=== PATIENT | male | born 1980 | race Caucasian/White ===

== ENCOUNTER 2016-04-30 14:33 | Emergency (ER) | payer MEDICAID ==
[2016-04-30 14:44] VITALS: BP 145/94; PULSE 78; RESP 18; TEMP 98; O2SAT 98
--- NOTE | 2016-04-30 15:17 | EDPHY ---
H & P Chief Complaint Nursing Narrative: here for MARIE for 2 wks - hx of CHI and freq MARIE HPI/ROS: HPI CHIEF COMPLAINT: Chronic headache HISTORY OF PRESENT ILLNESS: This patient 36-year-old male he presents to the urgent care by private vehicle stating that he has had a chronic headache for 2 weeks. Patient tells me that he has had this headache chronically for years since age 18. He tells me that he has developed headaches from repeated trauma to his head while playing hockey. When I asked him what is expectations here in the Urgent Care for acute treatment of his headache is requesting Percocet. I explained to him that I cannot given Percocet is it is a controlled substance and is not a good medication for acute headache management. I offered him a migraine or headache cocktail however patient is decline. I offered him other options however patient started to become irate and upset at me requesting Percocet. I explained again that I am unable to provide him Percocet for acute headache management he does have a primary care doctor he also is followed by Neurology. I did recommend that he follows up with his neurologist Dr. Moncada as well as his primary care doctor. At this time here in the Urgent Care he appears well nontoxic is a nonfocal neurological exam his expectation was to get Percocet and leave the urgent care. I explained unfortunately cannot do this as it is controlled substance I do not dispense Percocet for acute headache management. He declined IV, declined IV pain medicine, declined IV headache cocktail/migraine cocktail. Given that patient expectation is to have be given Percocet here he has declined all other treatments and given that I explained that I will not give him Percocet he has decided to leave the urgent care. Past Medical History: Chronic headaches Past Surgical History: denies significant surgical history Social History: Denies use of drugs alcohol tobacco Family History: noncontributory ROS REVIEW OF SYSTEMS: A comprehensive 10 point review of systems is otherwise negative aside from elements mentioned in the history of present illness. Exam Constitutional appears well nontoxic, triage nursing summary reviewed, vital signs reviewed, awake/alert. Eyes normal conjunctivae and sclera, EOMI, PERRLA. HENT normal inspection, atraumatic, moist mucus membranes, no epistaxis, neck supple/ no meningismus, no raccoon eyes. Respiratory clear to auscultation bilaterally, normal breath sounds, no respiratory distress, no wheezing. Cardiovascular rate normal, regular rhythm, no murmur, no edema, distal pulses normal. Gastrointestinal soft, non-tender, no rebound, no guarding, normal bowel sounds, no distension, no pulsatile mass. Genitourinary no CVA tenderness. Musculoskeletal no midline vertebral tenderness, full range of motion, no calf swelling, no tenderness of extremities, no meningismus, good pulses, neurovascularly intact. Skin pink, warm, & dry, no rash, skin atraumatic. Neurologic awake, alert and oriented x 3, AAOx3, moves all 4 extremities equally, motor intact, sensory intact, CN II-XII intact, normal cerebellar, normal vision, normal speech. Psychiatric normal mood/affect. Heme/Lymph/Immune no lymphadenopathy. Differential Diagnosis: Includes but is not limited to in a particular order, chronic headaches, chronic migraine headaches, cluster headaches, tension headache, doubt intracranial bleed, doubt brain tumor, narcotic-seeking behavior , opiate dependency Medical Decision Making: Patient has decided that decline all treatment here in the Urgent Care and would like to be discharged. I did recommend that if he has worsening headache to return to the ER or Urgent Care I also highly recommend that he follows up with his primary care doctor and neurologist. At this time he appears well nontoxic no acute distress, normal neurological exam. I politely declined to give him Percocet. Source: Patient - Personal History Current Tetanus Diphtheria and Acellular Pertussis (TDAP): Yes Tetanus Vaccine Date: 2006 - Medical/Surgical History Hx Asthma: No Hx Chronic Respiratory Disease: No Hx Diabetes: No Hx Cardiac Disease: No Hx Renal Disease: No Hx Cirrhosis: No Hx Alcoholism: No Hx HIV/AIDS: No Hx Splenectomy or Spleen Trauma: No Other PMH: MIGRAINES. Left shoulder surgery rotator cuff - Social History Smoking Status: Never smoked Constitutional: Initial Vital Signs Temperature (C) 36.6 C 04/30/16 14:41 Heart Rate 78 04/30/16 14:41 Respiratory Rate 18 04/30/16 14:41 Blood Pressure 145/94 H 04/30/16 14:41 O2 Sat (%) 98 04/30/16 14:41 O2 Delivery Mode Room Air Allergies/Adverse Reactions: prednisone Allergy (Verified 07/16/15 11:16) Home Medications: Medication Instructions Recorded Verapamil 09/26/14 Zoloft 100mg (RX) 09/26/14 traMADOL 06/07/15 Departure - Departure Disposition: Home, Routine, Self-Care Clinical Impression: Headache Qualifiers: Headache type: unspecified Headache chronicity pattern: acute headache Intractability: not intractable Qualifier Code: (R51) Headache Condition: Good Instructions: General Headache (ED) Additional Instructions: 1. Please follow up with your primary care doctor or neurologist. 2. if you have any worsening symptoms questions or concerns please return to the urgent care or emergency room. Referrals: Scott Moncada MD [Primary Care Provider] - As per Instructions
== END 2016-04-30 15:42 | disposition home or self-care (01) ==
LOC: CED 14:33
DX: R51 Headache (principal)
CPT/HCPCS: G0463-PO